=== PATIENT | female | born 1955 | race Caucasian/White ===

== ENCOUNTER 2017-07-02 08:17 | Inpatient (IN) | payer OTHER ==
[2017-06-24 16:11] VITALS: BMI 41.0
--- NOTE | 2017-07-01 12:44 | History and Physical ---
History & Physical Date Jul 01, 2017. Chief Complaint Patient presents as a very pleasant 62-year-old white female with severe end- stage tricompartmental degenerative joint disease of the right knee no response to conservative therapy including physical therapy anti-inflammatories relative rest activity modifications x-rays will be able to subchondral sclerosis cystic formation of marginal osteophytes she has a moderate effusion and medial and lateral joint line pain History of Present Illness The patient is a 62 year old female with complaints of severe end-stage tricompartmental degenerative joint disease no response to conservative management including physical therapy anti-inflammatories relative rest activity modification Past Medical/Surgical History Patient denies history of hypertension lung or liver disease no other endocrine diseases noted Additional History Hepatic Disease: No Endocrine Disorder: No Kidney Disease: No Hypertension: No Heart Disease: No Bleeding Tendencies: No Infectious Diseases: No Allergies Coded Allergies: No Known Allergies (Unverified , 06/24/17) Home Medications Scheduled Celecoxib (CeleBREX), 200 MG PO QAM Cholecalciferol (Vitamin D3), 1 TAB PO QAM Duloxetine Hcl (Cymbalta), 60 MG PO QAM Gabapentin (Neurontin), 300 MG PO QID Hydrochlorothiazide (Hydrochlorothiazide), 25 MG PO QAM Levothyroxine Sodium (Synthroid), 75 MCG PO QAM Lisinopril (Prinivil), 10 MG PO HS Tramadol (Ultram), 100 MG PO TID [Potassium], 99 MG PO QPM Physical Examination Skin: warm/dry, no rash Eyes: normal inspection, EOMI, sclerae normal ENT: normal ENT inspection, pharynx normal Head: normocephalic, atraumatic Neck: supple, no adenopathy, trachea midline Respiratory/Chest: lungs clear, normal breath sounds, no respiratory distress Cardiovascular: regular rate, rhythm, no edema, no murmur Abdomen / GI: normal bowel sounds, non tender Back: normal inspection Extremities: normal inspection, normal range of motion, + pertinent finding ( Varus alignment of knee with crepitation medial lateral joint line pain and tenderness moderate effusion flexion limited to 115) Neurologic/Psych: no motor/sensory deficits, alert, normal reflexes, oriented x 3 Diagnosis Patient presents with severe end-stage tricompartmental degenerative joint disease right knee no response of the conservative management Plan of Treatment Right total knee arthroplasty postoperative pain management DVT prophylaxis is necessary
[2017-07-02] VITALS (7 sets, daily range): BP systolic 105–133; BP diastolic 61–98; PULSE 56–74; TEMP 33.6–36.7; O2SAT 95–100; Ht 149.9 cm; Wt 91.0 kg
[~2017-07-02] VITALS: Ht 149.9 cm; Wt 91.0 kg
[2017-07-02] MEDS: TRANEXAMIC ACID INJ 1,000 MG x 2 Bags IV SCH ×4 (06:30→10:23)
--- NOTE | 2017-07-02 08:01 | History & Physical Bridge Note ---
H&P Re-Evaluation Bridge Note: I have examined the patient, reviewed the History & Physical and in the interval since the performance of the History & Physical I have noted the following changes of clinical significance: No changes noted
[~2017-07-02 08:17] MED LIST: ACETAMINOPHEN 500 MG TAB PO SCH; BUPIVACAINE 0.25% 30 ML VIAL ONE; BUPIVACAINE 0.5 % 5 MG/1 ML PF 10ML VIAL ONE; CEFAZOLIN 2000MG IV PUSH 15 ML IV SCH; CHOL20007 PO; CLB/200 PO; CeleBREX 200 MG CAP PO SCH; DEXAMETHASONE 4 MG TAB PO SCH; DULO60CA44 PO; FAMOTIDINE 20 MG TAB PO SCH; GABA-113 PO; GABAPENTIN 600 MG PO SCH; HYDR25TA5 PO; LACTATED RINGER'S 1000ML 1,000 ML IV SCH; LEVO75TA PO; LISI10TA PO; METOCLOPRAMIDE HCL 10 MG TAB PO SCH; POTASSIUM PO; ROPIVACAINE 5MG/ML 30 ML 150 MG, BUPIVACAINE 0.5% MPF INJ 30 ML, EpINEphrine HCL INJ 0.... INFIL SCH; TRAM-10 PO
[2017-07-02] MEDS ORDERED: ONDANSETRON INJ 2 MG/ML 2 ML VIAL IV PRN ×2 (08:45→12:45)
[2017-07-02] MEDS ORDERED: EpHEDrine SULFATE INJ 50 MG/ML AMP IV PRN (08:45)
[2017-07-02] MEDS ORDERED: ATROPINE SULFATE 0.1 MG/ML 5ML SYR IV PRN (08:45)
[2017-07-02] MEDS ORDERED: FENTANYL CITRATE INJ 50 MCG/1 ML 2 ML VIAL IV PRN (08:45)
[2017-07-02] MEDS ORDERED: DEXAMETHASONE SOD INJ 4 MG/ML VIAL ONE (09:09)
[2017-07-02] MEDS ORDERED: FENTANYL CITRATE INJ 50 MCG/1 ML 2 ML VIAL ONE (09:09)
[2017-07-02] MEDS ORDERED: LIDOCAINE HCL 2% 2 ML VIAL (20MG/ML) ONE (09:09)
[2017-07-02] MEDS ORDERED: MIDAZOLAM HCL 1 MG/ML 2ML VIAL ONE ×2 (09:09)
[2017-07-02] MEDS ORDERED: ONDANSETRON INJ 2 MG/ML 2 ML VIAL ONE (09:09)
[2017-07-02] MEDS ORDERED: PROPOFOL IV EMULSION 10 MG/ML 20 ML VIAL IV ONE (09:09)
[2017-07-02 09:45] LABS: CALCIUM 9.3 mg/dl (8.5-10.1); CREATININE 0.9 mg/dl (0.60-1.20)
[2017-07-02] MEDS ORDERED: POVIDONE-IODINE OP SOLN 30 ML BTL ONE (10:10)
[2017-07-02] MEDS ORDERED: ORTHO JOINT ANESTHETIC ONE (10:10)
[2017-07-02] MEDS ORDERED: BACITRACIN 50000 UNIT VIAL ONE (10:10)
--- NOTE | 2017-07-02 11:53 | [facility] Post Operative Brief Note ---
Immediate Operative Summary Operative Date Jul 02, 2017. Pre-Operative Diagnosis Severe End-stage tricompartmental degenerative joint disease of the right knee Post-Operative Diagnosis Severe End-stage tricompartmental degenerative joint disease of the right knee Procedure(s) Performed Right Total Knee Arthroplasty utilizing Gao nephxzoops journey to non-block total knee arthroplasty size 4 femur 3 tibia 11 polyethylene [address] Justin Gandhi Digester Capper Surgeon(s) Brendan Giles PA-c Estimated Blood Loss 5 CC Findings Consistent with Post-Op Diagnosis Specimens Specimen A: Bone and Tissue Right knee Anesthesia Type MAC Spinal Regional Complication(s) none Disposition Disposition: Recovery Room / PACU
--- NOTE | 2017-07-02 11:55 | [facility] Operative Report ---
Operative Report Operative Date Jul 02, 2017. Pre-Operative Diagnosis Severe End-stage tricompartmental degenerative joint disease of the right knee Post-Operative Diagnosis Severe End-stage tricompartmental degenerative joint disease of the right knee Procedure(s) Performed Right Total Knee Arthroplasty utilizing [employer] journey to non-block total knee arthroplasty size 4 femur 3 tibia 11 polyethylene [address] Justin Gandhi Batch Heat Treat Operator Surgeon(s) Brendan Giles PA-c Estimated Blood Loss 5 CC Findings Patient presents with severe end-stage tricompartmental degenerative joint disease varus alignment subchondral sclerosis cystic changes marginal osteophytes she has a moderate effusion medial lateral collateral pain and tenderness medial lateral joint line pain and tenderness with pseudolaxity of her MCL she is failed times conservative management presents today for total knee arthroplasty Specimens Specimen A: Bone and Tissue Right knee Anesthesia Type MAC Spinal Regional Complication(s) none Disposition Recovery Room / PACU Indications Patient presents with severe end-stage right hormonal degenerative joint disease time surgery showed evidence of cystic changes marginal osteophytes bone -on-bone eburnated bone varus alignment patient failed attempts at conservative management including injections and Visco supplementation bracing presents for total knee arthroplasty Description of Procedure After proper prepping and draping of the Right lower extremity anterior midline incision was made over the region of the extensor extensor mechanism after meticulous hemostasis was obtained and maintained in subcutaneous tissues a medial parapatellar incision was made The patella was subluxed lateralward the medial lateral gutter were cleaned from any hypertrophic synovitis and scar tissue of the distal femoral block was placed and the distal femoral osteotomy cut was made subsequently the chamfers anterior and posterior osteotomy cuts were made utilizing the 4-in-1 block the tibia was subsequently subluxed anteriorward medial and ateral meniscal remnants were excised in their entirety remnants of the anterior and posterior cruciate ligaments were excised in their entirety excellent exposure of the proximal tibia was obtained the tibial osteotomy guide was placed on the proximal tibial osteotomy cut was made once again the knee was irrigated with copious amounts of sterile saline solution the patella was subsequently everted lateralward thickened scar tissue around the patella was removed the patella was subsequently cut utilizing a freehand technique and was drilled prepared for final preparation and placement of patella socially flexion-extension gaps were checked and the equal and symmetric trials were placed to the appropriate femoral and tibial trials with poly-spacer being placed for equal flexion and extension gaps and full range of motion including extension to 0 and flexion to 140 the trial components after having been taken to recovery range of motion was subsequently removed meticulous hemostasis was obtained and maintained subsequently a knee block injection of joint cocktail including ropivacaine 0.5% 150 mg. Bupivacaine 0.5 % epinephrine 1-200,030 mL's toradol 30 mg dexamethasone 4 mg ketamine 10 mg clonidine 100 micrograms normal saline solution 30 mg was infiltrated into the soft tissues of the posterior knee medial lateral gutters and periosteal synovium special attention was paid to protect neurovascular structures at all times subsequently trial components having been removed the knee was irrigated with sterile saline solution. debris was removed the proximal tibia was subsequently prepared and was made ready for the placement of the tibial component tibial component was also cemented and tamped into position the femoral component was subsequently placed and cemented in the position the patellar component was subsequently cemented in position because hemostasis once again obtained and maintained wound having been thoroughly irrigated with debridement and debridement lavage was performed as well as a medial parapatellar incision closed with #1 Vicryl in interrupted fashion subcutaneous was closed with #2 Vicryl skin was closed with skin clips. PA-C was necessary for prepping and drapping as well as wound closure of deep fascia Sub cutaneous tissue and skin and was necessary for the case. A sterile compressive dressing was placed patient was taken to recovery in stable condition of report dictated by Hiram I attest to the content of the Intraoperative Record and any orders documented therein. Any exceptions are noted below. I attest to the content of the Intraoperative Record and any orders documented therein. Any exceptions are noted below.
[2017-07-02] MEDS ORDERED: ALUMINUM/MAGNESIUM/SIMETH (MAALOX MAX) 30 ML UDC PO PRN (12:45)
[2017-07-02] MEDS ORDERED: BISACODYL 10 MG SUPP PR PRN (12:45)
[2017-07-02] MEDS ORDERED: MAGNESIUM HYDROXIDE SUSP 30 ML UDC PO PRN (12:45)
--- NOTE | 2017-07-02 12:49 | DIAGNOSTIC IMAGING REPORT ---
R KNEE 1 OR 2 VIEWS ROUTINE HISTORY: 62 years-old Female AP/LATERAL IN PACU RIGHT KNEE right knee total joint arthroplasty. Degenerative joint disease COMPARISON: None available TECHNIQUE: 2 views of the right knee FINDINGS: Postoperative changes from right knee total joint arthroplasty with patellar resurfacing. Alignment is satisfactory without periprostatic fracture or retained foreign body identified. There is expected postsurgical soft tissue swelling with deep tissue air and surgical drain in place. IMPRESSION: Right knee total joint arthroplasty and patellar resurfacing without complication identified. The above report was generated using voice recognition software. It may contain grammatical, syntax or spelling errors. Electronically signed by: Steven Torres M.D. 07/02/2017 12:47 PM Dictated Date/Time: 07/02/2017 12:46 PM
--- NOTE | 2017-07-02 13:26 | Anesthesiology Progress Note ---
Anesthesia Post Op Note Date & Time Jul 02, 2017 at 13:25 Vital Signs Pain Intensity: 0 Vital Signs Past 12 Hours Date Time Temp Pulse Resp B/P (MAP) Pulse Ox O2 Delivery O2 Flow Rate FiO2 18 13:17 58 13 99 18/18 13:17 58 13 18/18 13:16 116/58 4/18/18 13:12 59 13 98 /18/18 13:12 60 13 18/18 13:11 119/61 18/18 13:07 59 12 18/18 13:07 60 12 98 18/18 13:06 119/67 18/18 13:02 58 11 07/02/18 13:02 36.8 59 14 119/67 (75) 98 Nasal Cannula 2 18 13:02 58 11 97 18/18 13:01 119/62 /18/18 12:57 59 21 97 /18/18 12:57 58 21 /18/18 12:56 119/65 18/18 12:52 59 18 18/18 12:52 59 18 100 18/18 12:51 113/62 4/18/18 12:51 113/62 4/18/18 12:50 60 14 /18/18 12:50 60 14 /18/18 12:50 60 14 91 /18/18 12:50 60 14 91 /18/18 12:46 116/61 4/18/18 12:46 116/61 4/18/18 12:45 63 17 4/18/18 12:45 64 17 94 4/18/18 12:45 64 17 94 4/18/18 12:45 63 17 4/18/18 12:41 121/62 4/18/18 12:41 121/62 4/18/18 12:40 63 14 95 4/18/18 12:40 63 14 95 4/18/18 12:40 63 14 4/18/18 12:40 63 14 4/18/18 12:36 124/77 4/18/18 12:36 124/77 4/18/18 12:35 72 14 122/108 97 4/18/18 12:35 72 14 122/108 97 4/18/18 12:35 70 14 4/18/18 12:35 36.4 70 18 124/77 (100) 97 Room Air 07/02/17 12:35 70 14 07/02/17 09:12 36.7 68 20 133/98 97 Room Air Notes Mental Status: alert / awake / arousable, participated in evaluation Pt Amnestic to Procedure: Yes Nausea / Vomiting: adequately controlled Pain: adequately controlled Airway Patency, RR, SpO2: stable & adequate BP & HR: stable & adequate Hydration State: stable & adequate Neuraxial Anesthesia: was administered, sensory block is resolving Anesthetic Complications: no major complications apparent
[2017-07-02] MEDS: D5W AND 1/2NSS + 20MEQ KCL 1,000 ML IV SCH (15:40)
[2017-07-02] MEDS: GABAPENTIN 300 MG CAP PO SCH ×2 (15:42→21:17)
[2017-07-02] MEDS: ACETAMINOPHEN 500 MG TAB PO SCH ×2 (15:43→21:53)
[2017-07-02] MEDS: FERROUS GLUCONATE 324 MG TAB PO SCH (18:25)
[2017-07-02] MEDS: CEFAZOLIN IV 2,000 MG in SYRINGE 0 ML IV SCH (18:26)
[2017-07-02] MEDS: DOCUSATE SODIUM 100 MG CAP PO SCH (21:17)
[2017-07-02] MEDS: SENNA 8.6 MG TAB PO SCH (21:17)
[2017-07-02] MEDS: LISINOPRIL 10 MG TAB PO SCH (21:17)
[2017-07-02] MEDS: CeleBREX 200 MG CAP PO SCH (21:17)
[2017-07-02] MEDS: ASPIRIN 81 MG ECTAB PO SCH (21:17)
[2017-07-02] MEDS ORDERED: NURSING DECISION MEDICATION ORDER SCH ×2 (23:00→23:30)
[2017-07-02] MEDS ORDERED: COUGH DROP (SUGAR FREE) LOZ 24 LOZ/1 BOX LOZ ONE (23:00)
[2017-07-03] VITALS (7 sets, daily range): BP systolic 90–121; BP diastolic 55–73; PULSE 56–70; TEMP 36.4–36.7; O2SAT 92–98
[2017-07-03] MEDS: OXYCODONE HCL IR 5 MG TAB (IMMEDIATE RELEASE) PO PRN ×5 (00:04→23:33)
[2017-07-03] MEDS: D5W AND 1/2NSS + 20MEQ KCL 1,000 ML IV SCH ×2 (00:06→10:28)
[2017-07-03] MEDS: CEFAZOLIN IV 2,000 MG in SYRINGE 0 ML IV SCH (02:22)
[2017-07-03] MEDS: TRAMADOL HCL 50 MG TAB PO PRN ×4 (02:26→19:47)
[2017-07-03] MEDS: ACETAMINOPHEN 500 MG TAB PO SCH ×3 (05:49→22:02)
[2017-07-03] MEDS: LEVOTHYROXINE 75 MCG TAB PO SCH (05:49)
--- NOTE | 2017-07-03 06:48 | Orthopedic Progress Note ---
Orthopedic Progress Note Date of Service Jul 03, 2017. Subjective Post OP Day: 1 (right TKA) Reports: feeling well, pain controlled w PO medications, Denies: complaints, chest pain, SOB, nausea / vomiting, light headedness, calf pain Objective calves soft nontender, N/V intact, capillary refill less than 2 sec., dressing C /D/I, A&O x3, toes mobile, hemovac drainage (150cc/8 hours) Date Time Temp Pulse Resp B/P (MAP) Pulse Ox O2 Delivery O2 Flow Rate FiO2 07/03/17 02:25 36.4 56 15 100/63 (75) 96 Room Air 07/03/17 00:00 Room Air 07/02/17 23:35 36.6 56 15 110/64 (79) 95 Room Air 07/02/17 16:40 36.4 69 19 105/63 (77) 99 Nasal Cannula 2.0 07/02/17 15:40 36.3 70 19 118/72 (87) 99 Nasal Cannula 2.0 07/02/17 15:30 Nasal Cannula 2.0 07/02/17 14:44 74 18 106/64 (78) 100 Nasal Cannula 2.0 07/02/17 14:10 33.6 72 18 114/61 (78) 97 Nasal Cannula 2.0 07/02/17 13:40 Nasal Cannula 2.0 07/02/17 13:40 36.5 62 16 118/67 (84) 100 Nasal Cannula 2.0 07/02/17 13:40 100 Nasal Cannula 2.0 07/02/17 13:17 58 13 99 07/02/17 13:17 58 13 07/02/17 13:16 116/58 07/02/17 13:12 59 13 98 07/02/17 13:12 60 13 07/02/17 13:11 119/61 07/02/17 13:07 59 12 07/02/17 13:07 60 12 98 07/02/17 13:06 119/67 07/02/17 13:02 58 11 07/02/17 13:02 36.8 59 14 119/67 (75) 98 Nasal Cannula 2 07/02/17 13:02 58 11 97 07/02/17 13:01 119/62 07/02/17 12:57 59 21 97 4/18/18 12:57 58 21 4/18/18 12:56 119/65 4/18/18 12:52 59 18 4/18/18 12:52 59 18 100 4/18/18 12:51 113/62 4/18/18 12:51 113/62 4/18/18 12:50 60 14 4/18/18 12:50 60 14 /18/18 12:50 60 14 91 /18/18 12:50 60 14 91 /18/18 12:46 116/61 4/18/18 12:46 116/61 4/18/18 12:45 63 17 /18/18 12:45 64 17 94 4/18/18 12:45 64 17 94 4/18/18 12:45 63 17 /18/18 12:41 121/62 4/18/18 12:41 121/62 /18/18 12:40 63 14 95 /18/18 12:40 63 14 95 18/18 12:40 63 14 07/02/18 12:40 63 14 /18/18 12:36 124/77 18/18 12:36 124/77 18/18 12:35 72 14 122/108 97 /18/18 12:35 72 14 122/108 97 /18/18 12:35 70 14 /18/18 12:35 36.4 70 18 124/77 (100) 97 Room Air 18 12:35 70 14 /18/18 09:12 36.7 68 20 133/98 97 Room Air Laboratory Results 24 Hours: Test 07/03/17 04:44 Assessment & Plan Assessment: POD #1 s/p right tka pt/ot dvt proph with noel/scd/asa plan for d/c home with HHPT hypothyroidism HTN Discharge Planning Discharge Planning: home with home health DVT Prophylaxis: TEDs, SCDs, ASA
[2017-07-03] MEDS ORDERED: CLB200 PO (06:51)
[2017-07-03] MEDS ORDERED: RXC5 PO (06:51)
[2017-07-03] MEDS ORDERED: ACET-24 PO (06:51)
[2017-07-03] MEDS ORDERED: ONDA-170 PO (06:51)
[2017-07-03] MEDS ORDERED: CLC100 PO (06:51)
[2017-07-03] MEDS ORDERED: ASPI-320 PO (06:51)
--- NOTE | 2017-07-03 07:04 | Discharge Instructions ---
Discharge Instructions Date of Service Jul 03, 2017. Admission Reason for Admission: Right Knee Osteoarthritis Discharge Discharge Diagnosis / Problem: right total knee replacement Discharge Goals Goal(s): Decrease discomfort, Improve function, Increase independence Activity Recommendations Activity Limitations: as noted below Weightbearing Status: Right weightbearing (as tolerated) . Instructions / Follow-Up Instructions / Follow-Up ACTIVITY RECOMMENDATIONS: SELF CARE INSTRUCTIONS AFTER TOTAL KNEE REPLACEMENT A. You may need to continue a physical therapy program after discharge from the hospital. There are several options available to you. Your doctor will assist you in selecting the best one for you. 1. An out-patient facility 2 to 3 times a week for therapy or home therapy. 2. Continue working on all exercises taught to you in the hospital. Your goals should be to increase bending of your knee to 90 degrees and beyond and to fully straighten your knee. B. You may progress at your own pace from walking with a walker or crutches to a cane; then to no assistive devices. C. Make walking a part of your daily routine. Be up as much as comfortable with rest periods throughout the day. Rest with leg elevation is very important. Use the ice wrap frequently for the first 3-4 weeks. D. There are no restrictions on activities. You may ride in a car, shop, participate in bar tender and all social activities. E. Wear the long elastic stockings (LINDA hose) 20 hours a day for 2 weeks after surgery. They can be removed several times a day for laundering and for a bath. F. You may shower, no tub baths until cleared by your doctor. SPECIAL CARE INSTRUCTIONS: VERY IMPORTANT TO READ AND REVIEW A. There are a few signs you need to watch for after you are home. Call [facility] if you notice any of the followin. Increased severe knee pain. Some pain is expected especially when you exercise. 2. Increased swelling in your leg or knee; pain or swelling of the calf muscle in either lower leg. 3. Any fluid drainage from the incision. 4. Shortness of breath or chest pain. B. Please call [facility] at if you have any concerns or questions about your operation or recovery. The doctor or his nurse will return your call promptly. C. You must take antibiotics before dental work, bladder, bowel or other surgery. Your doctor will provide you with a permanent care to carry describing this precaution. IMPORTANT: * REMEMBER TO TAKE ASPIRIN, 81 MG, TWICE DAILY FOR 4 WEEKS UNLESS OTHERWISE DIRECTED. THIS IS YOUR BLOOD THINNER. * HIGH RISK PATIENTS MAY BE PRESCRIBED A STRONGER BLOOD THINNER. THIS WILL BE PROVIDED AT DISCHARGE. * CALL IF INCREASED PAIN, REDNESS, DRAINAGE OR FEVER GREATER THAT 101. * WEAR LINDA HOSE 20 HOURS PER DAY FOR 2 WEEKS. * Prevena- This is a large suction dressing covering your incision. This will help pull any excess drainage from the wound and allow your incision to heal properly. You may shower with this if you can keep the unit outside of the shower. If any bleeding or leakage is noted please call your doctor's office. This will remain on your incision for 7 days and then should be removed. This can be done yourself or by the home nursing staff if applicable. The entire unit is disposable once removed. Once removed, keep incision clean and dry. If redness or drainage is noted, please call your surgeon. FOLLOW UP VISIT: If appointment is not already scheduled: Please call [facility] to make a follow-up appointment for 2 weeks after your surgery at . Current Hospital Diet Patient's current hospital diet: Regular Diet Discharge Diet Recommended Diet: Regular Diet Procedures Procedures Performed: Right Total Knee Arthroplasty utilizing Gao nephew journey to non-block total knee arthroplasty size 4 femur 3 tibia 11 polyethylene 32 oval patella Pending Studies Studies pending at discharge: no Medical Emergencies . Who to Call and When: Medical Emergencies: If at any time you feel your situation is an emergency, please call 911 immediately. . Non-Emergent Contact Non-Emergency issues call your: Primary Care Provider, Surgeon . "Provider Documentation" section prepared by Gage Rene. . [place] Drug Monitoring Program Search Results: patient reviewed within database, no issues identified
[2017-07-03 07:45] LABS: CALCIUM 8.1 mg/dl (8.5-10.1); CREATININE 0.95 mg/dl (0.60-1.20); POTASSIUM 4.6 mmol/L (3.5-5.1)
[2017-07-03 07:49] LABS: HEMATOCRIT 35.7 % (37-47); HEMOGLOBIN 11.7 g/dL (12.0-16.0); MEAN CELL VOLUME 100.8 fL (80-100); MEAN CORPUSCULAR HEMOGLOBIN 33.1 pg (25-34); MEAN CORPUSCULAR HGB CONC 32.8 g/dl (32-36); MEAN PLATELET VOLUME 8.7 fL (7.4-10.4); PLATELET COUNT 274 K/uL (130-400); RED CELL DISTRIBUTION WIDTH SD 47.9 fL (36.4-46.3); WHITE BLOOD COUNT 16.95 K/uL (4.8-10.8)
[2017-07-03] MEDS: MULTIVITAMIN TAB PO SCH (08:45)
[2017-07-03] MEDS: CHOLECALCIFEROL 1000 INTER.UNIT TAB PO SCH (08:45)
[2017-07-03] MEDS: DULOXETINE HCL 60 MG CAP PO SCH (08:45)
[2017-07-03] MEDS: GABAPENTIN 300 MG CAP PO SCH ×4 (08:45→20:43)
[2017-07-03] MEDS: ASPIRIN 81 MG ECTAB PO SCH ×2 (08:46→20:43)
[2017-07-03] MEDS: FERROUS GLUCONATE 324 MG TAB PO SCH ×3 (08:46→18:09)
[2017-07-03] MEDS: DOCUSATE SODIUM 100 MG CAP PO SCH ×2 (08:46→20:43)
[2017-07-03] MEDS: CeleBREX 200 MG CAP PO SCH ×2 (08:46→20:43)
--- NOTE | 2017-07-03 10:46 | Anesthesiology Progress Note ---
Anesthesia Post Op Note Date & Time Jul 03, 2017 at 10:46 Vital Signs Vital Signs Past 12 Hours Date Time Temp Pulse Resp B/P (MAP) Pulse Ox O2 Delivery O2 Flow Rate FiO2 07/03/17 08:00 36.6 60 18 119/73 (88) 98 07/03/17 07:50 Room Air 07/03/17 02:25 36.4 56 15 100/63 (75) 96 Room Air 07/03/17 00:00 Room Air 07/02/17 23:35 36.6 56 15 110/64 (79) 95 Room Air Notes Mental Status: alert / awake / arousable, participated in evaluation Pt Amnestic to Procedure: Yes Nausea / Vomiting: adequately controlled Pain: adequately controlled Airway Patency, RR, SpO2: stable & adequate BP & HR: stable & adequate Hydration State: stable & adequate Neuraxial Anesthesia: was administered, sensory block resolved Anesthetic Complications: no major complications apparent
[2017-07-03] MEDS: MoRPHine SULFATE 2 MG/ML CARP IV PRN (20:05)
--- NOTE | 2017-07-03 21:24 | DIAGNOSTIC IMAGING REPORT ---
R VENOUS DOPP LOWER EXT UNILAT HISTORY: 62 years-old Female RULE OUT DVT acute right leg swelling with recent right knee total joint arthroplasty COMPARISON: Right knee radiographs 07/02/2017 TECHNIQUE: Multiple real-time sonographic images of the right lower extremity deep venous structures were obtained assessing grayscale appearance, color and spectral flow FINDINGS: Study is limited secondary to patient's postoperative status and soft tissue swelling. There is normal flow, compressibility, phasicity, and augmentation of the right lower extremity deep venous structures. IMPRESSION: No sonographic evidence of deep venous thrombosis. The above report was generated using voice recognition software. It may contain grammatical, syntax or spelling errors. Electronically signed by: Steven Torres M.D. 07/03/2017 9:23 PM Dictated Date/Time: 07/03/2017 9:21 PM
[2017-07-03] MEDS: SENNA 8.6 MG TAB PO SCH (22:02)
[2017-07-03] MEDS: LISINOPRIL 10 MG TAB PO SCH (22:02)
[2017-07-04] MEDS: MoRPHine SULFATE 2 MG/ML CARP IV PRN (00:29)
[2017-07-04] MEDS: LEVOTHYROXINE 75 MCG TAB PO SCH (06:07)
[2017-07-04] MEDS: ACETAMINOPHEN 500 MG TAB PO SCH ×3 (06:08→22:22)
[2017-07-04] MEDS: OXYCODONE HCL IR 5 MG TAB (IMMEDIATE RELEASE) PO PRN ×4 (06:08→23:59)
[2017-07-04 07:46] VITALS: BP 100/65; PULSE 57; TEMP 36.5; O2SAT 98
[2017-07-04] MEDS: KETOROLAC TROMETHAMINE 15 MG/ML VIAL IV. PRN (08:56)
[2017-07-04] MEDS: TRAMADOL HCL 50 MG TAB PO PRN (08:56)
[2017-07-04] MEDS: FERROUS GLUCONATE 324 MG TAB PO SCH ×3 (08:57→17:42)
[2017-07-04] MEDS: MULTIVITAMIN TAB PO SCH (08:57)
[2017-07-04] MEDS: CHOLECALCIFEROL 1000 INTER.UNIT TAB PO SCH (08:57)
[2017-07-04] MEDS: DULOXETINE HCL 60 MG CAP PO SCH (08:57)
--- NOTE | 2017-07-04 09:24 | Orthopedic Progress Note ---
Orthopedic Progress Note Date of Service Jul 04, 2017. Subjective Post OP Day: 2 Additional Notes: Pain states she had a rough night with pain control issues. Starting to get better now. Needed one dose of Morphine last night. Was having calf pain and US was ordered which proved to be negative for DVT. Calf pain resolving. Also having some mild numbness on the dorsum of the foot on the operative side. Objective dressing C/D/I (Prevena), A&O x3, toes mobile right calf less tender this AM. No point tenderness. Negative Karen's exam. Prevena intact and functioning. Noted decreased sensation on the dorsum of the foot. She is able to DF/PF the foot. Strengths seem to be equal with the feet bilaterally with DF/PF. Date Time Temp Pulse Resp B/P (MAP) Pulse Ox O2 Delivery O2 Flow Rate FiO2 07/04/17 07:46 36.5 57 17 100/65 (77) 98 Room Air 07/04/17 07:00 Room Air 07/03/17 23:30 Room Air 07/03/17 23:07 36.5 62 17 103/65 (78) 96 Room Air 07/03/17 22:08 65 106/59 (75) 94 Room Air 07/03/17 16:00 Room Air 07/03/17 15:45 36.7 70 17 105/70 (82) 94 Room Air 07/03/17 13:50 121/72 (88) 07/03/17 11:16 36.4 63 17 90/55 (67) 92 Room Air Assessment & Plan Assessment: POD #2 s/p right tka pt/ot dvt proph with noel/scd/asa plan for d/c home with HHPT residual foot numbness likely due to intra op injection for pain management. Discussed with patient. added Toradol to her pain regimen will recheck her today to make sure pain control is adequate for her to go home today. hypothyroidism HTN Inhouse Planning Pain Management: Toradol, Ultram, Morphine, PO Tylenol, Oxy IR DVT Prophylaxis: TEDs, SCDs, ASA Discharge Planning Discharge Planning: home with home health DVT Prophylaxis: TEDs, SCDs, ASA Therapy: Physical Therapy
[2017-07-04] MEDS ORDERED: ULT50X PO (09:26)
[2017-07-04] MEDS: GABAPENTIN 300 MG CAP PO SCH ×4 (09:56→20:59)
[2017-07-04] MEDS: DOCUSATE SODIUM 100 MG CAP PO SCH ×2 (09:57→20:58)
[2017-07-04] MEDS: CeleBREX 200 MG CAP PO SCH ×2 (09:57→20:59)
[2017-07-04] MEDS: ASPIRIN 81 MG ECTAB PO SCH ×2 (09:58→20:59)
[2017-07-04 15:59] VITALS: BP 98/63; PULSE 73; TEMP 36.7; O2SAT 94
[2017-07-04] MEDS: SENNA 8.6 MG TAB PO SCH (20:58)
[2017-07-04] MEDS: LISINOPRIL 10 MG TAB PO SCH (20:58)
[2017-07-04 21:01] VITALS: BP 126/72; PULSE 71
[2017-07-04 22:55] VITALS: BP 99/65; PULSE 68; TEMP 36.6; O2SAT 96
[2017-07-05] MEDS: OXYCODONE HCL IR 5 MG TAB (IMMEDIATE RELEASE) PO PRN ×2 (03:51→09:05)
[2017-07-05] MEDS: LEVOTHYROXINE 75 MCG TAB PO SCH (05:30)
[2017-07-05] MEDS: ACETAMINOPHEN 500 MG TAB PO SCH (05:30)
[2017-07-05 07:31] VITALS: BP 100/64; PULSE 60; TEMP 36.4; O2SAT 97
[2017-07-05] MEDS: DOCUSATE SODIUM 100 MG CAP PO SCH (09:00)
--- NOTE | 2017-07-05 09:02 | Orthopedic Progress Note ---
Orthopedic Progress Note Date of Service Jul 05, 2017. Subjective Post OP Day: 3 Reports: feeling well, Denies: complaints Additional Notes: Pt feeling much better today. Pain controlled. Wanting to go home today. Objective calves soft nontender, N/V intact, dressing C/D/I (Prevena), A&O x3, toes mobile Date Time Temp Pulse Resp B/P (MAP) Pulse Ox O2 Delivery O2 Flow Rate FiO2 07/05/17 08:10 Room Air 07/05/17 07:31 36.4 60 16 100/64 (76) 97 Room Air 07/05/17 00:03 Room Air 07/04/17 22:55 36.6 68 16 99/65 (76) 96 Room Air 07/04/17 21:01 71 126/72 (90) 07/04/17 16:00 Room Air 07/04/17 15:59 36.7 73 18 98/63 (75) 94 Room Air Assessment & Plan Assessment: POD #3 s/p right tka pt/ot dvt proph with noel/scd/asa plan for d/c home with HHPT hypothyroidism HTN Inhouse Planning Pain Management: Toradol, Ultram, Morphine, PO Tylenol, Oxy IR DVT Prophylaxis: TEDs, SCDs, ASA Discharge Planning Discharge Planning: home with home health DVT Prophylaxis: TEDs, ASA Therapy: Physical Therapy
[2017-07-05] MEDS: CHOLECALCIFEROL 1000 INTER.UNIT TAB PO SCH (09:04)
[2017-07-05] MEDS: ASPIRIN 81 MG ECTAB PO SCH (09:04)
[2017-07-05] MEDS: GABAPENTIN 300 MG CAP PO SCH (09:04)
[2017-07-05] MEDS: MULTIVITAMIN TAB PO SCH (09:04)
[2017-07-05] MEDS: FERROUS GLUCONATE 324 MG TAB PO SCH (09:04)
[2017-07-05] MEDS: DULOXETINE HCL 60 MG CAP PO SCH (09:04)
[2017-07-05] MEDS: CeleBREX 200 MG CAP PO SCH (09:04)
[2017-07-05] MEDS ORDERED: RXC5 PO (09:06)
[2017-07-05] MEDS: KETOROLAC TROMETHAMINE 15 MG/ML VIAL IV. PRN (10:02)
[2017-07-05 10:07] VITALS: BP 100/64; PULSE 60; TEMP 36.4; O2SAT 97
== END 2017-07-05 11:17 | disposition home health service (06) | DRG 470 ==
LOC: C.ACU 08:17 → C.3E 09:21 → ENRESERV 13:03
PROVIDERS: ADMIT Orthopaedic Surgery; ATTEND Orthopaedic Surgery
PROC: 0SRC0J9 Replacement of Right Knee Joint with Synthetic Substitute, Cemented, Open Approach (ICD-10-PCS; principal; 2017-07-02 10:45)
DX: M17.11 Unilateral primary osteoarthritis, right knee (principal); Z68.41 Body mass index [BMI] 40.0-44.9, adult; M25.461 Effusion, right knee; M21.161 Varus deformity, not elsewhere classified, right knee; R20.0 Anesthesia of skin; T80.89XA Other complications following infusion, transfusion and therapeutic injection, initial encounter; Y84.8 Other medical procedures as the cause of abnormal reaction of the patient, or of later complication, without mention of misadventure at the time of the procedure; Y92.234 Operating room of hospital as the place of occurrence of the external cause; M79.661 Pain in right lower leg; M06.9 Rheumatoid arthritis, unspecified; I10 Essential (primary) hypertension; E03.9 Hypothyroidism, unspecified; E66.9 Obesity, unspecified; Z79.01 Long term (current) use of anticoagulants; Z79.891 Long term (current) use of opiate analgesic; Z79.899 Other long term (current) drug therapy

== ENCOUNTER 2017-07-13 11:04 | Emergency (ER) | payer OTHER ==
[~2017-07-13] VITALS: Ht 149.9 cm; Wt 91.0 kg
[~2017-07-13 11:04] MED LIST changes: +ACET-24 PO; -ACETAMINOPHEN 500 MG TAB PO SCH; +ASPI-320 PO; -BUPIVACAINE 0.25% 30 ML VIAL ONE; -BUPIVACAINE 0.5 % 5 MG/1 ML PF 10ML VIAL ONE; -CEFAZOLIN 2000MG IV PUSH 15 ML IV SCH; -CLB/200 PO; +CLB200 PO; +CLC100 PO; -CeleBREX 200 MG CAP PO SCH; -DEXAMETHASONE 4 MG TAB PO SCH; -FAMOTIDINE 20 MG TAB PO SCH; -GABAPENTIN 600 MG PO SCH; -LACTATED RINGER'S 1000ML 1,000 ML IV SCH; -METOCLOPRAMIDE HCL 10 MG TAB PO SCH; +ONDA-170 PO; -ROPIVACAINE 5MG/ML 30 ML 150 MG, BUPIVACAINE 0.5% MPF INJ 30 ML, EpINEphrine HCL INJ 0.... INFIL SCH; +RXC5 PO; -TRAM-10 PO; +ULT50X PO
[2017-07-13 11:14] VITALS: TEMP 36.4; Ht 149.9 cm; Wt 91.0 kg
[2017-07-13] MEDS ORDERED: DOCU100C31 PO (11:55)
[2017-07-13] MEDS ORDERED: ACET-1256 PO (11:55)
[2017-07-13] MEDS ORDERED: ASPI-232 PO (11:55)
[2017-07-13] MEDS ORDERED: ONDA-170 PO (11:55)
[2017-07-13] MEDS ORDERED: CLB/200 PO (11:55)
[2017-07-13] MEDS ORDERED: TRAM-10 PO (11:55)
[2017-07-13] MEDS ORDERED: OXYC1TAB3 PO (11:55)
[2017-07-13] MEDS ORDERED: OXYCODONE HCL IR 5 MG TAB (IMMEDIATE RELEASE) PO STA (12:03)
--- NOTE | 2017-07-13 12:29 | DIAGNOSTIC IMAGING REPORT ---
ULTRASOUND RIGHT LOWER EXTREMITY VENOUS CLINICAL HISTORY: Right leg pain and swelling. COMPARISON STUDY: Right lower extremity venous ultrasound dated 07/03/2017. TECHNIQUE: Real-time, grayscale, and color Doppler sonography of the deep veins of the right lower extremity was performed from the inguinal crease to the calf. Compression and augmentation were utilized. FINDINGS: There is no sonographic evidence of deep venous thrombosis identified in the right lower extremity. The common femoral, superficial femoral, and popliteal veins are patent and normally compressible. The greater saphenous vein and the profunda femoris vein at the junction with the common femoral vein are clear. The visualized calf veins are patent. Simultaneous soft tissue edema is noted in the calf. IMPRESSION: There is no sonographic evidence of deep venous thrombosis identified in the right lower extremity. Electronically signed by: Stephen Horne M.D. 07/13/2017 12:28 PM Dictated Date/Time: 07/13/2017 12:27 PM
[2017-07-13 12:40] VITALS: BP 110/60; PULSE 61; O2SAT 96
--- NOTE | 2017-07-13 17:15 | EMERGENCY ROOM VISIT NOTE ---
History First contact with patient: 11:18 Chief Complaint: LEG PAIN,LEG INJURY Stated Complaint: SWOLLEN LEG History of Present Illness The patient is a 62 year old white female who presents to the Emergency Room with complaints of right leg pain and swelling that developed overnight. She previously had a right total knee arthroplasty 1-1/[address] Gandhi[address] She states she did have some postoperative swelling but it seemed to be going down. She woke this morning with increased swelling and pain. She states there was some concern about a DVT postoperatively but that an ultrasound obtained the day after surgery was negative. She is concerned that her knee is becoming infected. She has noticed some discoloration around the front and side of the knee. She called the on-call orthopedist and states she was sent to the ED for evaluation. No fevers or chills. No nausea or vomiting. She has not been wearing her LINDA hose around the clock. She states she uses them about 12 hours a day. She does not sleep in them. No increase in activity. She is scheduled to be seen in the office this coming Friday for staple removal. She is having increased difficulty with ambulation secondary to her leg pain. She did take a tablet of oxycodone this morning around 7 AM. She is taking 2 baby aspirin daily for DVT prophylaxis. Review of Systems REVIEW OF SYSTEM: HEENT: No dizziness, visual problems, hearing loss, or tinnitus. There is no difficulty swallowing and no oral lesions are present. PULMONARY: No cough, shortness of breath, sputum production or hemoptysis. CARDIOVASCULAR: No chest pain, palpitations, shortness of breath or peripheral edema. GASTROINTESTINAL: No diarrhea, constipation, nausea, vomiting, or abdominal pain. GENITOURINARY: No dysuria, frequency, urgency or nocturia. NEUROLOGIC: No weakness, muscle tenderness, epilepsy or history of neurological problems. MUSCULOSKELETAL: No history of joint tenderness/swelling. Positive history of arthritis and arthralgias. SKIN: No rashes or lesions. PSYCHIATRIC: No history of depression or mental illness. ENDOCRINE: No history of diabetes or abnormal hair growth. Past Medical/Surgical History Medical Problems: (1) Right knee DJD Hypertension, hypothyroidism, depression, neuropathy. Family History Noncontributory. Social History Smoking Status: Never Smoker Smokeless Tobacco Use: No Alcohol Use: none Drug Use: none Marital Status: Housing Status: lives with family Current/Historical Medications Scheduled Acetaminophen (Tylenol), 2 TAB PO Q8 Aspirin (Aspir-81), 1 TAB PO BID Celecoxib (CeleBREX), 200 MG PO BID Cholecalciferol (Vitamin D3), 1 TAB PO QAM Docusate Sodium (Docusate Sodium), 1 CAP PO BID Duloxetine Hcl (Cymbalta), 60 MG PO QAM Gabapentin (Neurontin), 300 MG PO QID Hydrochlorothiazide (Hydrochlorothiazide), 25 MG PO QAM Levothyroxine Sodium (Synthroid), 75 MCG PO QAM Lisinopril (Prinivil), 10 MG PO HS [Potassium], 99 MG PO QPM Scheduled PRN Ondansetron Hcl (Zofran), 8 MG PO Q8 PRN for Nausea Oxycodone Ir (Roxicodone Ir), 1-2 TAB PO Q4H PRN for Severe Pain Tramadol (Ultram), 50-100 MG PO Q4H PRN for Pain Physical Exam Vital Signs Date Time Temp Pulse Resp B/P (MAP) Pulse Ox O2 Delivery O2 Flow Rate FiO2 07/13/17 12:40 61 18 110/60 96 Room Air 07/13/17 11:14 36.4 88 18 116/73 96 Room Air Physical Exam General: Well-developed, well-nourished, obese middle-aged white female in obvious discomfort. No acute distress. Sitting on a bed. Alert and oriented. Skin: Warm and dry with good turgor. No rashes. Healing surgical wound over the anterior knee. Surgical jaun are intact. No active drainage. Expected postoperative ecchymosis and erythema anterior and medial. Expected postoperative edema around her knee. Moderate intra-articular effusion. She does have significant edema in the distal thigh, and entire lower leg. Varicosities are present. The patient is not diaphoretic. No abrasions. I see nothing that appears concerning for infection. Musculoskeletal: Right knee has full terminal extension. She has fairly good quad control and is able to perform a straight leg raise. Stable collateral ligaments. Flexion today is around 40 secondary to pain. No visible or palpable defect in the quadriceps tendon or patellar tendon. Surgical incision is closed with surgical juan. No active drainage. Neurologic: Gross sensation is intact across the right leg by soft touch. Peripheral pulses are 1+. Medical Decision & Procedures ER Provider Diagnostic Interpretation: Venous ultrasound obtained today was reviewed by me and read by radiology. It is negative for DVT. Medications Administered Medications (Trade) Dose Ordered Sig/Moose Route Start Time Stop Time Status Last Admin Dose Admin Oxycodone HCl (Roxicodone Immediate Rel Tab) 5 mg NOW STAT PO 07/13/17 12:03 07/13/17 12:05 DC 07/13/17 12:41 5 MG OxyIR 5 mg p.o. ED Course Patient and her were educated regarding today's findings. Conservative care measures were discussed. She was reassured that I do not find anything to suggest infection. Discoloration is expected and consistent with postoperative changes. Her leg edema is likely due to lack of elevation and external compression. I did recommend that she use her compression stockings for 20 out of 24 hours a day. Elevate the leg on 2 pillows at night. Ice to the knee and lower leg as needed for pain control and edema control. Follow-up with Dr. Gandhi on Friday as scheduled. She was given a tablet of OxyIR while here in the ED. Continue with her usual dosing as prescribed by her surgeon. Medical Decision Possibility of DVT, peripheral dependent edema, postoperative edema, infection, hemarthrosis, and lymphedema were considered among others [place] Drug Monitoring Program Search Results: no issues identified Medication Reconcilliation Current Medication List: was personally reviewed by me Blood Pressure Screening Patient's blood pressure: Normal blood pressure Impression Primary Impression: S/P total knee replacement Additional Impression: Leg pain, right Departure Information Dispostion Home / Self-Care Condition FAIR Referrals Justin Gandhi,D.O. Forms HOME CARE DOCUMENTATION FORM, IMPORTANT VISIT INFORMATION Patient Instructions My [facility] [employer] Additional Instructions Ice and elevate the leg frequently to reduce pain and swelling Continue using her compression stockings as previously directed-use them at least 20 hours a day Follow-up with Dr. Gandhi on Friday as scheduled Return to the ED for any acute changes Problem Qualifiers Primary Impression: S/P total knee replacement Laterality: right Qualified Codes: Z96.651 - Presence of right artificial knee joint
== END 2017-07-13 13:12 | disposition home or self-care (01) ==
LOC: C.EDB 11:05
DX: Z96.651 Presence of right artificial knee joint (principal); M79.604 Pain in right leg; I10 Essential (primary) hypertension; E03.9 Hypothyroidism, unspecified; F32.9 Major depressive disorder, single episode, unspecified; G62.9 Polyneuropathy, unspecified; Z79.82 Long term (current) use of aspirin; Z79.899 Other long term (current) drug therapy